=== PATIENT | female | born 1945 | race Caucasian/White ===

== ENCOUNTER 2018-03-18 21:55 | Observation (INO) | payer OTHER ==
[~2018-03-18] VITALS: Ht 152.4 cm; Wt 85.3 kg
[~2018-03-18 21:55] MED LIST: ADULT LOW DOSE81 MG PO; ANTIVERT25 MG PO; CARAFATE 1 GM TA1 G1 PO; CARBOPLATIN; CARVEDILOL3.125 MG PO; DEXAMETHASONE 44 M1 PO; DEXILANT60 MG PO; HERCEPTIN; HYDROCODON-ACE1 EAC7 PO; IBUPROFEN 800800 MG PO; KEFLEX500 MG PO; LEVAQUIN 500 M500 M2 PO; LEVAQUIN 500 M500 M4 PO; LEVAQUIN 500 M500 MG PO; LISINOPRIL20 MG PO; LISINOPRIL5 MG PO; MOBIC7.5 MG; NORCO 5-325 TA1 EACH PO; ONDANSETRON HCL4 M2 PO; OXYCODONE HCL 55 MG; PACERONE 200 M200 M1 PO; PACLITAXEL; POTASSIUM20 PO; PRILOSEC OTC20 MG PO; PROVENTIL HFA6.7 G1 INH; REGLAN 10 MG TA10 MG PO; ROBAXIN 750 MG750 M1 PO; SYMAX-SL0.125 MG SUBLING; TRAMADOL 50 MG50 MG PO; TRANSDERM-SCO1 PATCH TD; ULTRAM 50MG TAB50 MG PO; VENLAFAXIN75 MG/1 T2 PO; VITAMIN D1000 UNI1 PO; ZOFRAN ODT4 MG PO; [UNRECOGNIZED DRUG - OTHER]
[2018-03-18 21:58] VITALS: BP 193/97
[2018-03-18 22:22] LABS: ABSOLUTE BASOPHILS 0.1 thou/uL (0.0-0.2); ABSOLUTE EOSINOPHILS 0.3 thou/uL (0.0-0.7); ABSOLUTE LYMPHOCYTES 1.8 thou/uL (0.8-5.3); ABSOLUTE MONOCYTES 0.7 thou/uL (0.0-1.2); ABSOLUTE NEUTROPHILS 5.3 thou/uL (1.6-8.1); BASOPHILS 0.9 %; EOSINOPHILS 3.9 %; HEMOGLOBIN 11.3 gm/dL (12.0-15.0); LYMPHOCYTES 21.7 %; MCH 27.9 pg (26.0-34.0); MCHC 32.1 g/dL (28.0-37.0); MCV 86.8 fL (80.0-100.0); MONOCYTES 8.9 %; MPV 8.1 fl. (7.2-11.1); NUCLEATED RBCS 0 /100WBC; PLATELET COUNT* 205 thou/uL (150-400); POLYS 64.6 %; RBC 4.03 mil/uL (4.20-5.00); RDW-CV 17.1 % (10.5-14.5); WBC 8.2 thou/uL (4.0-11.0)
[2018-03-18 22:29] LABS: ANION GAP 8 mmol/L (7-16); BUN 18 mg/dL (7-18); CALCIUM 8.6 mg/dL (8.5-10.1); CHLORIDE 107 mmol/L (98-107); CO2 26 mmol/L (21-32); GLUCOSE 140 mg/dL (70-99); POTASSIUM 3.7 mmol/L (3.5-5.1); SODIUM 141 mmol/L (136-145)
[2018-03-18 22:32] LABS: INR 1.1; PROTIME 10.6 Seconds (9.20-11.50)
[2018-03-18 22:33] LABS: URINE BILIRUBIN NEGATIVE (Negative); URINE BLOOD NEGATIVE (Negative); URINE CLARITY CLEAR; URINE COLOR YELLOW; URINE GLUCOSE-RANDOM NEGATIVE (Negative); URINE KETONES NEGATIVE (Negative); URINE LEUKOCYTES-REFLEX NEGATIVE (Negative); URINE NITRITE-REFLEX NEGATIVE (Negative); URINE PROTEIN NEGATIVE (Negative); URINE UROBILINOGEN 0.2 E.U./dl (0.2-1.0)
[2018-03-18 22:40] LABS: ALBUMIN 2.9 g/dL (3.4-5.0); ALKALINE PHOSPHATASE 77 U/L (46-116); NT-PRO BRAIN NAT PEPTIDE 560 pg/mL (<300); SGOT 13 U/L (15-37); SGPT 16 U/L (30-65); TOTAL BILIRUBIN 0.2 mg/dL (<0.1-1.0); TOTAL PROTEIN 6.9 g/dL (6.4-8.2); TROPONIN-I LEVEL <0.06 ng/mL (<0.06)
[2018-03-19 00:35] VITALS: BP 187/94
--- NOTE | 2018-03-19 05:36 | NUR ---
PT ADMITTED FROM ER. HISTORY AND ASSESSMENT COMPLETE. O2 2L NC. IVF INFUSING. PT VOIDS PER BEDPAN. UNABLE TO TOLERATE GETTING UP TO COMMODE R/T VERTIGO. ORIENTED TO ROOM, CALL LIGHT, AND BED CONTROLS. PT VERBALIZED UNDERSTANDING.
[2018-03-19 08:00] VITALS: BP 157/85
--- NOTE | 2018-03-19 08:15 | NUR ---
RECEIVED REPORT. ASSUMED CARE OF PT AT 0730. VSS. CARDIAC MONITORING IN PLACE SR. AM ASSESSMENT AND VITALS COMPLETED CHARTED. PT ALERT AND OREITNED BUT FORGETFUL. PT ON 2L PER NC WITH O2 SAT AT 98% IVF INFUSING PER ORDERS. PT DENIES ANY COMPLAINTS OF PAIN OR DISCOMFORT THIS AM. PT REPORTS VERTIGO HAS IMPROVED SLIGHTLY. PT INCONT. OF URINE. PT IS UP WITH ASSIT TO BSC. PT TAKEN DOWN FOR MRI THIS AM. PT IFNORMED OF PLAN OF CARE. CALL LIGHT WITHIN REACH. WILL CONTINUE TO MONITOR FOR DURATIO OF SHFIT.
[2018-03-19] MEDS ORDERED: ANTIVERT25 MG PO (09:03)
[2018-03-19] MEDS ORDERED: ASPIR 8181 MG PO (09:04)
--- NOTE | 2018-03-19 09:16 | EKG ---
[place] [address] ELECTROCARDIOGRAM REPORT Name: PIA BAUM Room: [address] IN [facility]#: [id number] Admission: 03/19/18 Attend Phys: Jenny Zepeda Discharge: Date of : 43 Report #: [id number] THIS REPORT FOR: //name// [facility] ED Test Date: 2018-03-18 Test Time: 22:26:17 Pat Name: PIA BUAM Department: Room: Gender: F Printing Plate Clerk: BOWEN : 1945 Requested By: Toya Montes Order Number: [id number] MD: Fabian Oakes Measurements Intervals [place] Rate: 76 P: 20 NC: 236 QRS: -3 QRSD: 104 T: 10 QT: 412 QTc: 464 Interpretive Statements Sinus rhythm Prolonged [place] interval Abnormal R-wave progression, early transition Baseline wander in lead(s) V1 Compared to ECG 01/23/2016 18:11:31 No significant changes Electronically Signed On 03-19-2018 9:15:47 CDT by Fabian Oakes [email or web address] <ELECTRONICALLY SIGNED> By: Fabian Oakes MD, FAC 03/19/18 0915 2226 2226 Fabian Oakes MD, [facility] /EPI
[2018-03-19 11:48] VITALS: BP 154/87
[2018-03-19 14:17] VITALS: BP 154/87
--- NOTE | 2018-03-19 14:43 | NUR ---
DISCHARGE ORDERS RECEIVED AND PREPARED. IV AND CARDIAC MONTIORING DISCONTINUED. PT AND FAMILY EDUCATED ON DISCHARGE INSTRUCTIONS. ALL QUESTIONS AND CONCERNS ANSWERED AT THIS TIME. PT GIVEN COPY OF DISCHARGE PAPERWORK, SCRIPTS, AND MRI RESUTLS. PT'S PERSONALL BELONGINGS GATHERED AND SENT HOME WITH PT. PT ESCORTED OFF UNIT VIA W/C. PT LEFT IN PRIVATE VEHICLE.
--- NOTE | 2018-03-19 16:35 | NUR ---
P.T. ORDERS RECEIVED ~0900. PT DISCHARGE TODAY ~1445 PRIOR TO COMPLETION OF P.T. EVAL.
== END 2018-03-19 15:04 | disposition home or self-care (01) ==
LOC: M.ERS 21:55 → M.2W 03-19 00:18 → M.TBA-ER 03-19 00:18 → M.2W 03-19 00:18 → M.TBA 03-19 08:53 → M.2W 03-19 08:55
PROVIDERS: Emergency Medicine; ADMIT Internal Medicine
DX: R42 Dizziness and giddiness (principal); I10 Essential (primary) hypertension; K21.9 Gastro-esophageal reflux disease without esophagitis; Z90.49 Acquired absence of other specified parts of digestive tract; Z85.3 Personal history of malignant neoplasm of breast; F41.9 Anxiety disorder, unspecified; I16.0 Hypertensive urgency

== ENCOUNTER 2019-01-23 16:01 | Observation (INO) | payer OTHER ==
[~2019-01-23] VITALS: Ht 152.4 cm; Wt 90.7 kg
[~2019-01-23 16:01] MED LIST changes: +ASPIR 8181 MG PO
[2019-01-23 16:03] VITALS: BP 192/69
[2019-01-23 16:38] LABS: ABSOLUTE EOSINOPHILS 0.4 thou/uL (0.0-0.7); ABSOLUTE LYMPHOCYTES 1.9 thou/uL (0.8-5.3); ABSOLUTE MONOCYTES 0.9 thou/uL (0.0-1.2); ABSOLUTE NEUTROPHILS 5.5 thou/uL (1.6-8.1); BASOPHILS 0.3 %; EOSINOPHILS 4.1 %; HEMATOCRIT 34.3 % (37.0-47.0); LYMPHOCYTES 21.7 %; MCH 27.5 pg (26.0-34.0); MCHC 32.1 g/dL (28.0-37.0); MCV 85.7 fL (80.0-100.0); MONOCYTES 10.7 %; NUCLEATED RBCS 0 /100WBC; PLATELET COUNT* 230 thou/uL (150-400); POLYS 63.2 %; RDW-CV 16.1 % (10.5-14.5); WBC 8.7 thou/uL (4.0-11.0)
[2019-01-23 16:46] LABS: APTT 23.7 Seconds (25.0-31.3); PROTIME 10.6 Seconds (9.20-11.50)
[2019-01-23 16:54] LABS: ANION GAP 9 mmol/L (7-16); BUN 22 mg/dL (7-18); CALCIUM 8.6 mg/dL (8.5-10.1); CHLORIDE 106 mmol/L (98-107); CO2 25 mmol/L (21-32); CREATININE 1.3 mg/dL (0.6-1.3); GLUCOSE 91 mg/dL (70-99); POTASSIUM 4.5 mmol/L (3.5-5.1); SODIUM 140 mmol/L (136-145); TROPONIN-I LEVEL <0.06 ng/mL (<0.06)
[2019-01-23 16:58] LABS: ALKALINE PHOSPHATASE 81 U/L (46-116); SGOT 18 U/L (15-37); SGPT 15 U/L (30-65); TOTAL BILIRUBIN 0.2 mg/dL (<0.1-1.0); TOTAL PROTEIN 7.5 g/dL (6.4-8.2)
[2019-01-23 18:56] LABS: URINE BILIRUBIN NEGATIVE (Negative); URINE BLOOD NEGATIVE (Negative); URINE CLARITY CLEAR; URINE COLOR YELLOW; URINE GLUCOSE-RANDOM NEGATIVE (Negative); URINE KETONES NEGATIVE (Negative); URINE LEUKOCYTES-REFLEX TRACE (Negative); URINE NITRITE-REFLEX NEGATIVE (Negative); URINE PROTEIN NEGATIVE (Negative); URINE SPECIFIC GRAVITY <= 1.005 (1.005-1.030); URINE UROBILINOGEN 0.2 E.U./dl (0.2-1.0)
[2019-01-23 19:13] LABS: CASTS None Seen /LPF (None Seen); CRYSTALS None Seen /LPF (None Seen); SQUAMOUS NONE SEEN /LPF (0-3); URINE RBC None Seen /HPF (0-2); URINE WBC-REFLEX None Seen /HPF (0-5)
[2019-01-23 19:42] VITALS: BP 175/88
[2019-01-23 19:56] VITALS: BP 187/81
[2019-01-23 19:59] VITALS: BP 188/101
[2019-01-23 20:00] VITALS: BP 182/108
[2019-01-24] VITALS (8 sets, daily range): BP systolic 146–167; BP diastolic 79–97
[2019-01-24 05:28] LABS: CHOLESTEROL 142 mg/dL (<200); HDL CHOLESTEROL 32 mg/dL (>40); LDL CHOLESTEROL 73 mg/dL (<100); TC:HDL 4.4 Ratio (Not establshd); TRIGLYCERIDE 187 mg/dL (<150); VLDL 37 mg/dL (<40)
[2019-01-24 05:34] LABS: SERUM ASSESSMENT Clear
[2019-01-24] MEDS ORDERED: ASPIRIN EC81 M1 PO (10:39)
--- NOTE | 2019-01-24 17:37 | EKG ---
[place] [address] ELECTROCARDIOGRAM REPORT Name: PIA BAUM Room: [address] M.R.#: [id number] Admission: 01/23/19 Attend Phys: Jaret Brothers MD Discharge: 01/24/19 Date of : 43 Report #: [id number] THIS REPORT FOR: //name// [facility] ED Test Date: 2019-01-23 Test Time: 16:07:58 Pat Name: PIA BAUM Department: Room: [facility] Gender: F Horseradish Grinder: Miguel JAMISON : 1945 Requested By: Beatriz Hernández Order Number: [id number] MD: Fabian Oakes Measurements Intervals [place] Rate: 69 P: 9 [place]: 257 QRS: 1 QRSD: 97 T: 11 QT: 394 QTc: 422 Interpretive Statements Sinus rhythm Prolonged [place] interval Abnormal R-wave progression, early transition Compared to ECG 03/18/2018 22:26:17 No significant changes Electronically Signed On 01-24-2019 17:37:01 CDT by Fabian Oakes [email or web address] <ELECTRONICALLY SIGNED> By: Fabian Oakes MD, FACC 01/24/19 1737 1607 1607 Fabian Oakes MD, FAC /EPI
[2019-01-25 03:06] LABS: GLYCOHEMOGLOBIN (HGB A1C) 6.9 % (4.8-5.6)
== END 2019-01-24 13:25 | disposition home or self-care (01) ==
LOC: M.ERS 16:01 → M.TBA-ER 18:03 → M.2W 18:03
PROVIDERS: Nurse Practitioner Family; ADMIT Internal Medicine
DX: G45.8 Other transient cerebral ischemic attacks and related syndromes (principal); I16.0 Hypertensive urgency; K21.9 Gastro-esophageal reflux disease without esophagitis; I67.1 Cerebral aneurysm, nonruptured; I10 Essential (primary) hypertension; R55 Syncope and collapse; Z90.710 Acquired absence of both cervix and uterus; Z85.3 Personal history of malignant neoplasm of breast; Z88.5 Allergy status to narcotic agent

== ENCOUNTER 2020-03-09 20:27 | Inpatient (IN) | payer MEDICARE ==
[~2020-03-09] VITALS: Ht 152.4 cm; Wt 83.9 kg
[~2020-03-09 20:27] MED LIST changes: +ASPIRIN EC81 M1 PO
[2020-03-09 20:30] VITALS: BP 174/83
[2020-03-09] MEDS ORDERED: VITAMIN D350 MC1 PO (20:42)
[2020-03-09 21:02] LABS: ABSOLUTE BASOPHILS 0.1 thou/uL (0.0-0.2); ABSOLUTE EOSINOPHILS 0.2 thou/uL (0.0-0.7); ABSOLUTE LYMPHOCYTES 1.3 thou/uL (0.8-5.3); ABSOLUTE MONOCYTES 0.5 thou/uL (0.0-1.2); ABSOLUTE NEUTROPHILS 6.4 thou/uL (1.6-8.1); BASOPHILS 0.7 %; EOSINOPHILS 2.4 %; HEMATOCRIT 34.4 % (37.0-47.0); HEMOGLOBIN 11.3 gm/dL (12.0-15.0); LYMPHOCYTES 15.2 %; MCH 29.3 pg (26.0-34.0); MCHC 32.9 g/dL (28.0-37.0); MCV 88.9 fL (80.0-100.0); MONOCYTES 5.9 %; MPV 8.4 fl. (7.2-11.1); NUCLEATED RBCS 0 /100WBC; PLATELET COUNT* 187 thou/uL (150-400); POLYS 75.8 %; RBC 3.87 mil/uL (4.20-5.00); RDW-CV 14.4 % (10.5-14.5); WBC 8.4 thou/uL (4.0-11.0)
[2020-03-09 21:11] LABS: CREATININE 1.1 mg/dL (0.6-1.3); POTASSIUM 3.9 mmol/L (3.5-5.1)
[2020-03-09 21:15] LABS: TOTAL BILIRUBIN 0.3 mg/dL (<0.1-1.0); TOTAL PROTEIN 7.1 g/dL (6.4-8.2)
[2020-03-09 21:27] LABS: URINE BILIRUBIN NEGATIVE (Negative); URINE BLOOD NEGATIVE (Negative); URINE CLARITY CLEAR; URINE COLOR YELLOW; URINE GLUCOSE-RANDOM NEGATIVE (Negative); URINE KETONES NEGATIVE (Negative); URINE LEUKOCYTES-REFLEX NEGATIVE (Negative); URINE NITRITE-REFLEX NEGATIVE (Negative); URINE PROTEIN NEGATIVE (Negative); URINE UROBILINOGEN 0.2 E.U./dl (0.2-1.0)
[2020-03-10] VITALS (7 sets, daily range): BP systolic 145–183; BP diastolic 62–89
--- NOTE | 2020-03-10 06:48 | NUR ---
ASSUMED CARE OF PT AT 0030. PT IS ALERT AND ORIENTED. VSS. PERRLA. NO COMPLAINTS OF PAIN. PT HAS A URINARY CATHETER. PT IS UP WITH STAND BY ASSIST. PT HAS 2 LITERS OF O2 ON. PT IS SLEEPING COMFORTABLY IN BED. RESPIRATIONS ARE EVEN AND NONLABORED. WILL CONTINUE TO MONITOR PT.
--- NOTE | 2020-03-10 15:14 | NUR ---
Pt did not answer her room phone. CM called Pt's son, no answer and no VM. CM will attempt to assess tomorrow.
--- NOTE | 2020-03-10 16:28 | EKG ---
[place] [address] ELECTROCARDIOGRAM REPORT Name: PIA BAUM Room: [address] ADM IN .R.#: [id number] Admission: 03/09/20 Attend Phys: Emmanuelle Martin Discharge: Date of : 43 Date of Service: 03/09/202033 Report #: [id number] THIS REPORT FOR: //name// [facility] ED Test Date: 2020-03-09 Test Time: 20:34:39 Pat Name: PIA BAUM Department: Room: [facility] Gender: F Drier Tender: MR : 1945 Requested By: Julián Lopez Order Number: [id number] MD: Fabian Oakes Measurements Intervals [place] Rate: 62 P: 7 CT: 253 QRS: -7 QRSD: 127 T: -1 QT: 454 QTc: 461 Interpretive Statements Sinus rhythm Prolonged CT interval Right bundle branch block Compared to ECG 01/23/2019 16:07:58 Right bundle-branch block now present Electronically Signed On 03-10-2020 16:27:09 CDT by Fabian Oakes [email or web address] <ELECTRONICALLY SIGNED> By: Fabian Oakes MD, FAC 03/10/20 1627 33 33 Fabian Oakes MD, FAC /EPI
--- NOTE | 2020-03-10 17:43 | NUR ---
ASSUMED CARE OF PATIENT AT APPROX 0730. ALERT AND ORIENTED X4. ASSESSMENT COMPLETED AND CHARTED. VSS ON ROOM AIR. FLUIDS INFUSED AND DC'D ORDERED. PATIENT UP WITH ASSIST TO THE BATHROOM. REQUIRED 2 LITERS PRN ONE TIME AFTER WALKING TO THE BATHROOM AND BACK TO BED. NO COMPLAINTS OF PAIN THIS SHIFT. FALL PRECAUTIONS IN PLACE. CALL LIGHT WITHIN REACH. HOURLY ROUNDS COMPLETED. WILL CONTINUE WITH PLAN OF CARE.
[2020-03-11] VITALS (9 sets, daily range): BP systolic 115–188; BP diastolic 70–86
[2020-03-11 02:07] LABS: GLYCOHEMOGLOBIN (HGB A1C) 6.6 % (4.8-5.6)
--- NOTE | 2020-03-11 06:16 | NUR ---
PT CARE ASSUMED AT 1930. SAT MAINTAINED IN O2. ALERT AND ORIENTED X4. CALL LIGHT WITHIN REACH AND BED IN LOW POSITION. C/O PAIN, MEDICATION GIVEN PER EMAR. HOURLY ROUNDING DONE FOR PT SAFETY.
--- NOTE | 2020-03-11 11:18 | NUR ---
PT TRANSFERRED TO TELE. REPORT CALLED TO NURSE.
--- NOTE | 2020-03-11 12:25 | NUR ---
CM spoke with dtr via phone. Pt resides at home with her granddtr. Active and independent, continues to work at [employer]. No DME. No hx of HH or SNF. Pt's PCP is Dr Johann Bansal. Goal is home at [place]. Following.
[2020-03-11 15:21] LABS: HEMATOCRIT 32.5 % (37.0-47.0); HEMOGLOBIN 10.7 gm/dL (12.0-15.0); MCH 29.6 pg (26.0-34.0); MCHC 32.9 g/dL (28.0-37.0); MCV 89.8 fL (80.0-100.0); MPV 9.1 fl. (7.2-11.1); RBC 3.62 mil/uL (4.20-5.00); RDW-CV 14.8 % (10.5-14.5); WBC 5.7 thou/uL (4.0-11.0)
[2020-03-11 15:50] LABS: ALBUMIN 2.6 g/dL (3.4-5.0); CALCIUM 8.2 mg/dL (8.5-10.1); CREATININE 1.1 mg/dL (0.6-1.3); MAGNESIUM 1.8 mg/dL (1.8-2.4); POTASSIUM 4.1 mmol/L (3.5-5.1); TOTAL BILIRUBIN 0.2 mg/dL (<0.1-1.0); TOTAL PROTEIN 6.4 g/dL (6.4-8.2)
[2020-03-12 04:03] VITALS: BP 133/77
--- NOTE | 2020-03-12 07:47 | NUR ---
ASSUMED PATIENT CARE AT 1900. ASSESSMENT COMPLETED CHARTED. PATIENT IS SR ON THE MONITOR WITH A 1D AV BLOCK. HOURLY ROUNDING IN PLACE FOR PATIENT SAFETY. FALL PRECAUTIONS IN PLACE FOR PATIENT SAFETY. CLWR.
[2020-03-12 08:00] VITALS: BP 181/86
[2020-03-12 12:00] VITALS: BP 174/70
[2020-03-12] MEDS ORDERED: MECLIZINE HCL12.5 MG PO (12:12)
[2020-03-12] MEDS ORDERED: HYDROCHLOROTHIA25 M1 PO (12:12)
[2020-03-12] MEDS ORDERED: LISINOPRIL40 MG PO (12:12)
[2020-03-12] MEDS ORDERED: TRANSDERM-SCOP1 EACH TRANSDERM (12:12)
[2020-03-12 12:35] VITALS: BP 145/82
--- NOTE | 2020-03-12 14:20 | NUR ---
ASSUMED PT CARE AT 0730. ASSESSMENT COMPLETED CHARTED. NO C/O PAIN OR DISCOMFORT. NO N/V/D NOTED. D/C TO HOME TODAY APPROVED, WENT OVER DISCHARGE WITH PT. NO COMMENTS, QUESTIONS, OR CONCERNS. HEART MONITOR REMOVED AND NO IV'S IN PLACE. PT RIDE CAME BY SHORTLY AFTER TO GRADES 1 THRU 5 TEACHER PT AND PT LEFT AT 1410 TO [employer] [facility] WITH ALL BELONGINGS.
--- NOTE | 2020-03-13 12:23 | CON ---
[address] [address] CONSULTATION Name: PIA BAUM Room: [address] IN .R.#: [id number] Admission: 03/09/20 Attend Phys: Shoshana Broussard Discharge: 03/12/20 Date of : 43 Report #: [id number] THIS REPORT FOR: //name// cc: [facility] - Clinic physician unknown [facility] - Clinic physician unknown ~ THIS REPORT FOR: //name// CC: Dr. Douglas [facility] unknown Katya Briggs DATE OF SERVICE: 03/12/2020 INDICATION: Dizziness and heart block. HISTORY OF PRESENT ILLNESS: The patient is a very pleasant 74-year-old white female who was admitted to the hospital several days ago with nausea, vomiting and severe dizziness that sounded like vertigo. The patient has had some improvement with scopolamine patch. She is not having any chest pain or shortness of breath. Cardiac history includes hypertension, type 2 diabetes, nonocclusive carotid disease. The patient's hospital stay has been relatively unremarkable. On tele monitoring and by EKG, she has a first degree AV block with incomplete right bundle-branch block. She has had no other significant dysrhythmias while being monitored here. She has had outpatient monitoring as well that has shown sinus rhythm with first-degree AV block, but no other significant dysrhythmias. The patient denies syncope. She is without other cardiac complaint. PAST MEDICAL HISTORY: 1. 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 2. Hypertension. 3. Dyslipidemia. 4. History of tuberculosis as a child. 5. GERD. 6. Breast cancer. FAMILY HISTORY: Noncontributory. SOCIAL HISTORY: The patient lives with her granddaughter. She does not smoke. She does not drink alcohol. ALLERGIES: [place] [address] CONSULTATION Name: BAUTISTAPIA JAFFE Shoshana Room: [address]#: [id number] Admission: 03/09/20 Attend Phys: Shoshana Broussard Discharge: 03/12/20 Date of : 43 Report #: [id number] HOME MEDICATIONS: 1. Carvedilol 12.5 mg b.i.d. 2. Vitamin D3 50 mcg daily. 3. Lisinopril 5 mg daily. 4. Meclizine 25 mg p.r.n. 5. Omeprazole 40 mg daily. REVIEW OF SYSTEMS: A 14-point review of systems is positive for reflux, borderline diabetes, remote history of breast cancer, medical allergies outlined above. She wears glasses for distance view and she has dentures. PHYSICAL EXAMINATION: VITAL SIGNS: Blood pressure 181/86, pulse 70 and regular. GENERAL: This is a pleasant lady in no distress. Mood and affect appropriate. HEENT: Extraocular muscles intact. Mucous membranes moist. NECK: Shows no jugular venous distention. I do not appreciate a bruit. CHEST: Reveals clear lung monahan. CARDIOVASCULAR: Reveals a regular rhythm without gallop or murmur. ABDOMEN: Reveals normal bowel sounds. The abdomen is soft, nontender. EXTREMITIES: Show no edema. SKIN: Dry. LABORATORY DATA: A 12-lead EKG shows sinus rhythm with first-degree AV block and incomplete right bundle branch block. There are no significant ST or T-wave abnormalities noted. IMPRESSION AND RECOMMENDATIONS: 1. Dizziness, likely due to vertigo. This is improving. 2. First-degree AV block. I do not see any higher degree block on telemetry monitoring. Outpatient monitoring did not show any other significant dysrhythmias. We would follow clinically at this time. No indication for further evaluation or pacemaker. 3. Hypertension. Blood pressure moderately elevated at this time. We would adjust medications We will start by increasing lisinopril and adding a touch of hydrochlorothiazide. 4. Diabetes per primary physician. <ELECTRONICALLY SIGNED> By: Fabian Oakes MD, FACC 03/13/20 1223 1120 1339Michael Tiffanie Oakes MD, FACC /nt
== END 2020-03-12 14:12 | disposition home or self-care (01) | DRG 305 ==
LOC: M.ERS 20:27 → M.TBA-ER 23:00 → M.ORTHSURG 23:00 → M.2W 03-11 11:50
PROVIDERS: Family Medicine; Internal Medicine; ADMIT Internal Medicine
DX: I16.0 Hypertensive urgency (principal); R42 Dizziness and giddiness; G43.909 Migraine, unspecified, not intractable, without status migrainosus; K21.9 Gastro-esophageal reflux disease without esophagitis; I10 Essential (primary) hypertension; I44.0 Atrioventricular block, first degree; E11.65 Type 2 diabetes mellitus with hyperglycemia; E78.5 Hyperlipidemia, unspecified; Z20.828 Contact with and (suspected) exposure to other viral communicable diseases; Z90.49 Acquired absence of other specified parts of digestive tract; Z90.710 Acquired absence of both cervix and uterus; Z86.11 Personal history of tuberculosis; Z90.11 Acquired absence of right breast and nipple; Z79.82 Long term (current) use of aspirin; Z79.899 Other long term (current) drug therapy; Z88.5 Allergy status to narcotic agent; Z88.8 Allergy status to other drugs, medicaments and biological substances; Z85.3 Personal history of malignant neoplasm of breast

== ENCOUNTER 2021-04-24 13:13 | Inpatient (IN) | payer OTHER ==
[~2021-04-24] VITALS: Ht 152.4 cm; Wt 83.9 kg
--- NOTE | ~2021-04-24 | CON ---
[address] [address] CONSULTATION Name: BAUTISTAPIA Shoshana Room: [address] IN .R.#: [id number] Admission: 04/24/21 Attend Phys: Hanna Gallego MD Discharge: Date of : 43 Report #: [id number] THIS REPORT FOR: cc: Katya Ledbetter Maggie M. DO Khosla, Parveen K. MD ~ DOC #: [id number] Rusty Warren MD DATE OF CONSULTATION: 04/24/2021 HISTORY OF PRESENT ILLNESS: This is a 76-year-old female patient who was evaluated by me. The history I get is that this patient had some onset of dizziness, nausea, vomiting, headache. Exact duration is not clear whether it started yesterday or this morning. She had difficulty with walking at that time. She feels better, but she still has the symptoms. REVIEW OF SYSTEMS: Positive for question of aneurysm in the past. She is a pretty poor and reluctant historian. I reviewed the records and it looks like Dr. Hurley has seen this patient in the past. When she had evaluation of that dizziness, that was the time an aneurysm was found as per records. The evaluation looks like was in 2018. I do not know whether she had any workup done since then. She is a pretty reluctant historian because she wants to go home. It looks like she was here for dizziness in 2019. It also looks like these are recurrent episodes. REVIEW OF SYSTEMS: A 14-point review of system was carried out. It is poor because the patient is a reluctant historian. The family is there. They provide some history and it looks like she had these symptoms even before and she has been here in 2020 also and this time, symptoms appeared to be worse. She is not complaining of any eye symptoms. She is complaining of dizziness. She is not complaining of any chest pain, respiratory difficulty, GI, , musculoskeletal, constitutional, dermatological, hematological, psychiatric, throat, allergic symptom associated with present symptomatology. PAST MEDICAL HISTORY: Positive for breast cancer. FAMILY HISTORY: Unremarkable. SOCIAL HISTORY: She lives with her granddaughter, who helps her. She does not smoke or drink alcohol. PHYSICAL EXAMINATION: She is pretty apathetic. She said that she is having this dizziness. Her higher functions and cranial nerve examinations appear unremarkable, the best I can tell. She moves all 4 extremities. I did not notice any weakness in the legs in this patient, but [place] [address] CONSULTATION Name: BAUTISTAPIA Ratliff Room: [address] IN ..#: [id number] Admission: 04/24/21 Attend Phys: Hanna Gallego MD Discharge: Date of : 43 Report #: [id number] understand. She apparently has improved as per the patient. Her sensation is normal. Cardiorespiratory examination appears unremarkable. I did not notice any left leg weakness, but that has been noticed on other exams. The patient thinks it has improved. IMPRESSION: It is very difficult to form in this patient. She has been admitted before with the same symptoms, but in 2018, she has demonstrated an aneurysm. It was a small aneurysm. I do not think she had any evaluation since then. She has multiple other soft sign. Her white count is up for some reason and her troponin is high. Troponin high can be secondary to subarachnoid hemorrhage because it is only mildly high, but other etiologies need to be excluded. I would like to do an MRI if MRI can be done in this patient. If not, then I will do a CT angio once her GFR becomes somewhat better after hydration. I am going to go back and talk to her about the pacemaker because one of the notes has indicated that. If not, then MRI and MRA will be the best test and she is going to get Cardiology examination. Thank you very much for this referral and I spent more than 50 minutes of time taking care of this patient and that includes counseling and coordinating as well as reviewing her imaging study and extensive records. MD MEHREEN Navarro/HAI By: [id number] 0201Pelizabeth Warren MD /nt
[~2021-04-24 13:13] MED LIST changes: +HYDROCHLOROTHIA25 M1 PO; +LISINOPRIL40 MG PO; +MECLIZINE HCL12.5 MG PO; +TRANSDERM-SCOP1 EACH TRANSDERM; +VITAMIN D350 MC1 PO
[2021-04-24 13:29] VITALS: BP 115/55
[2021-04-24 14:06] LABS: HEMATOCRIT 33.5 % (37.0-47.0); HEMOGLOBIN 10.8 gm/dL (12.0-15.0); MCH 28.4 pg (26.0-34.0); MCHC 32.3 g/dL (28.0-37.0); MPV 7.4 fl. (7.2-11.1); NUCLEATED RBCS 0 /100WBC; PLATELET COUNT* 165 thou/uL (150-400); RBC 3.81 mil/uL (4.20-5.00); RDW-CV 15.3 % (10.5-14.5); WBC 13.1 thou/uL (4.0-11.0)
[2021-04-24 14:16] LABS: CALCIUM 8.4 mg/dL (8.5-10.1); CREATININE 1.3 mg/dL (0.6-1.3); POTASSIUM 3.8 mmol/L (3.5-5.1)
[2021-04-24 14:21] LABS: ALBUMIN 2.9 g/dL (3.4-5.0); TOTAL BILIRUBIN 0.6 mg/dL (<0.1-1.0); TOTAL PROTEIN 7.4 g/dL (6.4-8.2)
[2021-04-24 14:27] LABS: ABSOLUTE LYMPHOCYTES 0.3 thou/uL (0.8-5.3); ABSOLUTE MONOCYTES 0.7 thou/uL (0.0-1.2); ABSOLUTE NEUTROPHILS 12.2 thou/uL (1.6-8.1); PLATELET ESTIMATE ADEQUATE
[2021-04-24 18:32] VITALS: BP 128/70
[2021-04-24 18:45] VITALS: BP 102/60
[2021-04-24 19:45] VITALS: BP 121/71
[2021-04-25 01:00] VITALS: BP 114/64
[2021-04-25 04:00] VITALS: BP 132/67
[2021-04-25 08:00] VITALS: BP 151/72
--- NOTE | 2021-04-25 08:57 | EKG ---
[place] [address] ELECTROCARDIOGRAM REPORT Name: PIA BAUM Room: [address] IN .R.#: [id number] Admission: 04/24/21 Attend Phys: Hanna Gallego, Discharge: Date of : 43 Date of Service: 04/24/21 1347 Report #: [id number] THIS REPORT FOR: //name// [facility] ED Test Date: 2021-04-24 Test Time: 13:47:32 Pat Name: PIA BAUM Department: Room: [facility] Gender: F Cableman: MARCIA : 1945 Requested By: Hi Canales Order Number: [id number] MD: Fabian Oakes Measurements Intervals [place] Rate: 98 P: 16 [place]: 224 QRS: 15 QRSD: 120 T: -13 QT: 360 QTc: 460 Interpretive Statements Sinus rhythm Prolonged [place] interval Right bundle branch block compared to ECG 03/09/2020 20:34:39 No significant changes Electronically Signed On 04-25-2021 8:57:42 CDT by Fabian Oakes [email or web address] <ELECTRONICALLY SIGNED> By: Fabian Oakes MD, FAC 04/25/21 0857 1347 1347 Fabian Oakes MD, [facility] /EPI
[2021-04-25 12:00] VITALS: BP 128/67
--- NOTE | 2021-04-25 13:34 | NUR ---
Pt is A&O. Resides at home with fabir. Independent and active, continues to work at [employer]. No DME. No hx of HH or SNF. Goal is home at [place]. Cardiology following for elevated trop. Anticipate dc tomorrow.
--- NOTE | 2021-04-25 14:32 | 2DMMODE ---
[place] [address] 2 D/M-MODE ECHOCARDIOGRAM Name: BAUTISTAPIA Ratliff Room: [address] IN [facility]#: [id number] Admission: 04/24/21 Attend Phys: Hanna Gallego, Discharge: Date of : 43 Date of Service: 04/25/21 1432 Report #: [id number] THIS REPORT FOR: cc: Katya Ledbetter Maggie M. DO Liston, Michael J. MD [facility] ~ APPROVED REPORT Study performed: 04/25/2021 11:09:37 EXAM: Limited 2D Echocardiogram Patient Location: In-Patient Room #: [facility] Status: routine BSA: 1.81 HR: 70 bpm BP: 132/67 mmHg Rhythm: NSR Other Information Study Quality: Good Indications Elevated Troponin Volumes Left Atrial Volume (Systole) LA ESV Index: 47.10 mL/m2 Left Ventricle The left ventricle is normal size. There is normal LV segmental wall motion. There is normal left ventricular wall thickness. The left ventricular systolic function is normal. LVEF is 60-65%. Right Ventricle The right ventricle is normal size. The right ventricular systolic function is normal. Atria Left atrium is moderately dilated. The right atrium size is normal. Aortic Valve Mild aortic valve sclerosis. No aortic reg[place] [address] 2 D/M-MODE ECHOCARDIOGRAM Name: PIA BAUM Room: [address] IN .R.#: [id number] Admission: 04/24/21 Attend Phys: Hanna Gallego, Discharge: Date of : 43 Date of Service: 04/25/21 1432 Report #: [id number] Mitral Valve There is mitral annular calcification. There is no mitral valve regurgitation noted. Tricuspid Valve The tricuspid valve is normal in structure. Trace tricuspid regurgitation. No pulmonary hypertension. Pulmonic Valve The pulmonary valve is normal in structure. Mild pulmonic regurgitation. Great Vessels The aortic root is normal in size. IVC is normal in size and collapses >50% with inspiration. Pericardium There is no pericardial effusion. <Conclusion> The left ventricle is normal size. There is normal left ventricular wall thickness. The left ventricular systolic function is normal. LVEF is 60-65%. There is normal LV segmental wall motion. Left atrium is moderately dilated. Mild aortic valve sclerosis. There is mitral annular calcification. Trace tricuspid regurgitation. No pulmonary hypertension. Mild pulmonic regurgitation. <ELECTRONICALLY SIGNED> By: Fabian Oakes MD, [facility] 04/25/21 143 31 1432 Fabian Oakes MD, FACC /INF
[2021-04-25 15:54] VITALS: BP 154/76
[2021-04-25 23:49] VITALS: BP 133/71
[2021-04-26 05:04] VITALS: BP 134/82
[2021-04-26 05:17] LABS: HEMATOCRIT 32.6 % (37.0-47.0); HEMOGLOBIN 10.6 gm/dL (12.0-15.0); MCH 28.3 pg (26.0-34.0); MCHC 32.4 g/dL (28.0-37.0); MCV 87.4 fL (80.0-100.0); MPV 7.9 fl. (7.2-11.1); RBC 3.73 mil/uL (4.20-5.00); RDW-CV 15.2 % (10.5-14.5); WBC 5.7 thou/uL (4.0-11.0)
[2021-04-26 05:31] LABS: ALBUMIN 2.7 g/dL (3.4-5.0); CALCIUM 8.3 mg/dL (8.5-10.1); CREATININE 1.2 mg/dL (0.6-1.3); MAGNESIUM 1.9 mg/dL (1.8-2.4); TOTAL BILIRUBIN 0.4 mg/dL (<0.1-1.0); TOTAL PROTEIN 7.1 g/dL (6.4-8.2)
--- NOTE | 2021-04-26 06:14 | NUR ---
NO ACUTE CHANGES THROUGHOUT SHIFT. FULL ASSESSMENT COMPLETED CHARTED. ALL ROUNDINGS COMPLETED, ALL NEEDS MET. PT WAS ABLE TO SLEEP MOST OF THE NIGHT.
[2021-04-26 08:45] VITALS: BP 130/80
[2021-04-26] MEDS ORDERED: FERREX 150 PLU1 EAC1 PO (09:14)
[2021-04-26 10:33] LABS: ABSOLUTE LYMPHOCYTES 0.8 thou/uL (0.8-5.3); ABSOLUTE MONOCYTES 0.6 thou/uL (0.0-1.2); ABSOLUTE NEUTROPHILS 5.3 thou/uL (1.6-8.1); BASOPHILS 0.4 %; EOSINOPHILS 0.2 %; HEMATOCRIT 34.8 % (37.0-47.0); HEMOGLOBIN 11.3 gm/dL (12.0-15.0); LYMPHOCYTES 11.1 %; MCH 28.7 pg (26.0-34.0); MCHC 32.4 g/dL (28.0-37.0); MCV 88.3 fL (80.0-100.0); MONOCYTES 9.3 %; MPV 8.2 fl. (7.2-11.1); NUCLEATED RBCS 0 /100WBC; PLATELET COUNT* 140 thou/uL (150-400); RBC 3.94 mil/uL (4.20-5.00); RDW-CV 15.5 % (10.5-14.5); WBC 6.8 thou/uL (4.0-11.0)
[2021-04-26 11:21] LABS: INFLUENZA A ANTIGEN Negative (Negative); INFLUENZA B ANTIGEN Negative (Negative)
[2021-04-26 12:00] VITALS: BP 145/79
--- NOTE | 2021-04-26 13:07 | NUR ---
Cards following. Febrile this morning. Anticipate dc tomorrow
[2021-04-26 16:00] VITALS: BP 109/69
--- NOTE | 2021-04-26 17:47 | NUR ---
Pt had Temp 101.[address] Gallego notified, orders received. Rapid influenza swabs negative. BC X2 pending. Pt afebrile this evening. VSS. States she hopes to be discharged tomorrow. Will continue to monitor.
[2021-04-26 20:00] VITALS: BP 152/79
[2021-04-27 00:27] VITALS: BP 144/77
--- NOTE | 2021-04-27 04:50 | NUR ---
ASSUMED CARE OF PT AFTER REPORT AT 1930. PT A&OX4. VSS. PHYSICAL ASSESSMENT COMPLETED AND CHARTED. PT ON RA. PT TRACING SR/1STDEG/BBB ON TELE. PT UPADLIB TO RESTROOM. NO EPISODE OF DIZZINESS/FEVER. PT COMPLAINED OF HEARTBURN-MED GIVEN PER JAN. CALL LIGHT WITHIN REACH.
[2021-04-27 05:37] VITALS: BP 163/85
[2021-04-27 08:23] VITALS: BP 134/76
--- NOTE | 2021-04-27 10:16 | NUR ---
ASSUMED CARE OF PT THIS AM AROUND 0715- FLORAL ASSOCIATE IN PLACE ORDERED, TRACING SR- UPON ASSESSMENT PT NOTED TO BE UP IN BED SIDE RECLINER- PT A&O X4- CONT OF B/B- UP AD-MEDINA IN ROOM, STEADY GAIT NOTED- RUL/BASES DIMINISHED- VSS, O2 SAT 94% ON RA- ABD SOFT/ROUND/NON-TENDER, BS X4 QUADS-BM REPORTED THIS AM- IV NOTED TO LEFT FA INTACT AND SL- TRACE EDEMA NOTED- GOOD PO INTAKE NOTED THIS AM WITH BREAKFAST- PT DENIES ANY C/O PAIN/DISCOMFORT AT THIS TIME- CALL LIGHT AND PERSONAL BELONGINGS WITH IN REACH- ALL NEEDS MET AT THIS TIME
[2021-04-27 10:54] VITALS: BP 134/76
[2021-04-27 12:00] VITALS: BP 127/81
--- NOTE | 2021-04-27 14:03 | NUR ---
Pt discharging to home today, declined HH
[2021-04-27 14:39] VITALS: BP 134/76
--- NOTE | 2021-04-28 13:42 | NUR ---
I have reviewed the documentation by DEXTER FELICIANO from 04/24/21 to 04/28/21 and I concur with it. SHILA MOSQUEDA
== END 2021-04-27 14:39 | disposition home or self-care (01) | DRG 103 ==
LOC: M.ERS 13:13 → M.2W 15:29 → M.TBA-ER 15:29 → M.2W 15:29
PROVIDERS: Emergency Medicine Emergency Medical Services; ADMIT Internal Medicine; ATTEND Internal Medicine
DX: G43.909 Migraine, unspecified, not intractable, without status migrainosus (principal); E11.9 Type 2 diabetes mellitus without complications; R77.8 Other specified abnormalities of plasma proteins; I10 Essential (primary) hypertension; K21.9 Gastro-esophageal reflux disease without esophagitis; Z20.822 Contact with and (suspected) exposure to COVID-19; Z85.3 Personal history of malignant neoplasm of breast; Z90.49 Acquired absence of other specified parts of digestive tract; Z90.710 Acquired absence of both cervix and uterus; Z90.11 Acquired absence of right breast and nipple; Z86.11 Personal history of tuberculosis; Z79.899 Other long term (current) drug therapy; Z88.5 Allergy status to narcotic agent; Z88.8 Allergy status to other drugs, medicaments and biological substances